=== PATIENT | female | born 1995 | race Caucasian/White ===

== ENCOUNTER 2017-08-09 08:07 | Emergency (ER) | payer MEDICAID, OTHER ==
[2017-08-09 08:11] VITALS: BP 127/74; PULSE 59; RESP 20; TEMP 97.6; O2SAT 99
[2017-08-09 08:12] VITALS: BMI 33.2
--- NOTE | 2017-08-09 08:31 | ED PDOC ---
Upper Extremity Pain/Injury Time Seen by Provider: 08/09/17 08:10 Chief Complaint (Nursing): Upper Extremity Problem/Injury Chief Complaint (Provider): Upper Extremity Problem/Injury History Per: Patient History/Exam Limitations: no limitations Onset/Duration Of Symptoms: Days (x2 years) Current Symptoms Are (Timing): Still Present Additional Complaint(s): 22 y/o female presents to the emergency department with a complaint of pain and swelling to the right wrist x2 years. Reports symptoms are intermittent. Denies trauma. Past Medical History Reviewed: Historical Data, Nursing Documentation, Vital Signs Vital Signs: Last Vital Signs Temp 97.6 F 08/09/17 08:10 Pulse 59 L 08/09/17 08:10 Resp 20 08/09/17 08:10 BP 127/74 08/09/17 08:10 Pulse Ox 99 08/09/17 08:10 - Medical History PMH: No Chronic Diseases - Surgical History Surgical History: No Surg Hx - Family History Family History: States: Unknown Family Hx - Social History Current smoker - smoking cessation education provided: Yes (Light Smoker < 10 Cigarettes Daily) Alcohol: Social Drugs: Denies - Home Medications Home Medications: Ambulatory Orders Medication Instructions Recorded Naproxen [Naprosyn] 500 mg PO Q12H #20 tab 08/09/17 - Allergies Allergies/Adverse Reactions: Allergies Allergy/AdvReac Type Severity Reaction Status Date / Time No Known Allergies Allergy Verified 08/09/17 08:14 Review of Systems ROS Statement: Except As Marked, All Systems Reviewed And Found Negative Constitutional: Negative for: Other (No trauma) Musculoskeletal: Positive for: Other (Pain and swelling to the right wrist) Physical Exam - Reviewed Nursing Documentation Reviewed: Yes Vital Signs Reviewed: Yes - Physical Exam Appears: Positive for: Well Head Exam: Positive for: ATRAUMATIC, NORMAL INSPECTION, NORMOCEPHALIC Skin: Positive for: Normal Color, Warm, Dry Extremity: Positive for: Swelling (Ganglion cyst swollen and tender with no erythema. ) Neurologic/Psych: Positive for: Alert, Oriented (x3) - ECG O2 Sat by Pulse Oximetry: 99 (RA) Pulse Ox Interpretation: Normal Medical Decision Making Medical Decision Making: Time: 08:25 Initial Impression: Pain and swelling to the right wrist Initial Plan: Scribe Attestation: Documented by Yarely Rangel, acting as a scribe for Gerson Ochoa MD. Provider Scribe Attestation: All medical record entries made by the Scribe were at my direction and personally dictated by me. I have reviewed the chart and agree that the record accurately reflects my personal performance of the history, physical exam, medical decision making, and the department course for this patient. I have also personally directed, reviewed, and agree with the discharge instructions and disposition. Disposition - Clinical Impression Clinical Impression: Ganglion cyst - Patient ED Disposition Is Patient to be Admitted: No Counseled Patient/Family Regarding: Diagnosis, Need For Followup, Rx Given - Disposition Referrals: Bernardo Rosales MD [Staff Provider] - Disposition: Routine/Home Disposition Time: 08:35 Condition: FAIR Prescriptions: Naproxen [Naprosyn] 500 mg PO Q12H #20 tab Instructions: Ganglion Cysts (ED) Forms: [facility] (I[place]ic)
== END 2017-08-09 08:35 | disposition home or self-care (01) ==
LOC: H.ER 08:07
DX: M67.431 Ganglion, right wrist (principal)